=== PATIENT | female | born 1950 | race African-American/Black ===

== ENCOUNTER 2018-04-07 13:30 | Emergency (ER) | payer MEDICARE, OTHER ==
[2018-04-07] MEDS ORDERED: Ketorolac Tromethamine 30 MG/ML VIAL ONE (13:57)
[2018-04-07 14:07] LABS: #Basophils 0.1 thou/uL (0.0-0.2); #Eosinphils 0.1 thou/uL (0.0-0.7); #Lymphocytes 2.2 thou/uL (1.20-3.40); #Monocytes 0.3 thou/uL (0.11-0.59); #Neutrophils 6.2 thou/uL (1.40-6.50); %Basophils 0.9 % (0.0-1.0); %Lymphocytes 24.9 % (21.0-51.0); %Monocytes 3.8 % (0.0-10.0); %Neutrophils 69.4 % (42.0-75.0); Hemoglobin 12.2 g/dL (12.0-16.0); Mean Corpuscular HGB CONC 34.1 g/dL (32.0-36.0); Mean Corpuscular Hemoglobin 30.3 pg (27.0-31.0); Mean Corpuscular Volume 88.8 fL (78.0-98.0); Mean Platelet Volume 8.7 fL (7.4-10.4); Platelet Count 314 thou/uL (130-400); RBC Distribution Width 12.7 % (11.5-14.5); Red Blood Cell (RBC) Count 4.02 mill/uL (4.20-5.40)
[2018-04-07 14:11] LABS: Clarity Clear (Clear); Glucose, Urine (Dipstick) Negative (Negative); Leukocyte Negative (Negative); Nitrite Negative (Negative); Protein, Urine (Dipstick) Trace mg/dL (Neg-Trace); pH, Urine 7.5 (5.0-9.0)
[2018-04-07 14:12] LABS: Bilirubin Negative (Negative); Blood, Urine Negative (Negative); Urobilinogen 0.2 mg/dL (0.2-1.0)
[2018-04-07 14:23] LABS: ALT (SGPT) 13 U/L (8-55); AST (SGOT) 16 U/L (5-34); Albumin 4.6 g/dL (3.4-4.8); Alkaline Phosphatase 56 U/L (40-150); Anion Gap 16 mmol/L (10-20); BUN (Urea Nitrogen) 8 mg/dL (9.8-20.1); Bilirubin, Total 0.5 mg/dL (0.2-1.2); Calc. Creatinine Clearance 0 mL/min (70-130); Calcium 9.7 mg/dL (7.8-10.44); Carbon Dioxide 25 mmol/L (23-31); Chloride 105 mmol/L (98-107); Estimated GFR-MDRD Greater than 90; Globulin 3.3 g/dL (2.4-3.5); Glucose 102 mg/dL (80-115); Lipase 59 U/L (8-78); Potassium 3.7 mmol/L (3.5-5.1); Protein, Total 7.9 g/dL (6.0-8.3); Sodium 142 mmol/L (136-145)
[2018-04-07] MEDS ORDERED: Morphine 4 MG/ML VIAL ONE (15:10)
[2018-04-07] MEDS ORDERED: Ondansetron PF 4 MG/2 ML Vial ONE (15:10)
--- NOTE | 2018-04-07 15:12 | CT ---
CT ABDOMEN AND PELVIS WITHOUT CONTRAST: Date: 04/07/18 COMPARISON: 03/16/15. HISTORY: Sudden onset of left-sided abdominal pain. TECHNIQUE: Multiple contiguous axial images were obtained in a CT of the abdomen and pelvis without contrast. Co jesus reformats were performed. FINDINGS: Numerous calcifications are again seen in the lower pole of the right kidney. The largest of these ca lcifications measure approximately 6.0 mm in size. No calcifications are seen in the left kidney. The re is a stable left extrarenal pelvis. No calcifications seen in either ureter or in the urinary blad kristal. The patient is status post hysterectomy. The liver, gallbladder, adrenal glands, spleen, and pancreas are unremarkable, although evaluation is limited without IV contrast. No free air, free fluid, or stranding changes are seen in the abdomen o r pelvis. The large and small bowel are unremarkable. The appendix is normal. No abdominal or pelvic lymphadeno mario are seen. Degenerative changes are seen in the spine. The visualized inferior thorax and abdominal wall soft ti ssues are unremarkable. IMPRESSION: Nonobstructing right renal calcifications. POS: [facility]
== END 2018-04-07 15:34 | disposition home or self-care (01) ==
LOC: BURERS 13:30
DX: M62.838 Other muscle spasm (principal); E11.9 Type 2 diabetes mellitus without complications; E78.5 Hyperlipidemia, unspecified; I11.0 Hypertensive heart disease with heart failure; I50.9 Heart failure, unspecified; F32.9 Major depressive disorder, single episode, unspecified; E66.9 Obesity, unspecified; Z79.84 Long term (current) use of oral hypoglycemic drugs; Z79.899 Other long term (current) drug therapy
CPT/HCPCS: 74176; 80053; 81003; 83690; 85025; 96374; 96375; J1885; J2270; J2405

== ENCOUNTER 2018-12-17 07:47 | Emergency (ER) | payer MEDICARE, OTHER ==
[2018-12-17 08:15] LABS: Clarity Clear (Clear)
[2018-12-17 08:16] LABS: Bilirubin Negative (Negative); Blood, Urine Trace (Negative); Glucose, Urine (Dipstick) Negative (Negative); Leukocyte Negative (Negative); Nitrite Negative (Negative); Protein, Urine (Dipstick) > or equal to 300 mg/dL (Neg-Trace); RBC/HPF 0-3 HPF (0-3); Urobilinogen 0.2 mg/dL (Less than 2)
[2018-12-17 08:17] LABS: Bacteria/HPF 1+ HPF (None Seen); Squamous Epithelial 0-3 HPF (0-3)
[2018-12-17] MEDS ORDERED: Famotidine In NaCl 20 mg/50 ml Premix Bag ONE (08:29)
[2018-12-17] MEDS ORDERED: Ondansetron PF 4 MG/2 ML Vial ONE (08:29)
[2018-12-17 08:50] LABS: Hemoglobin 11.3 g/dL (12.0-16.0)
[2018-12-17 08:51] LABS: %Eosinophils 1.2 % (0.0-10.0); %Lymphocytes 16.2 % (21.0-51.0); %Monocytes 4.4 % (0.0-10.0); %Neutrophils 77.6 % (42.0-75.0); Manual Diff?? YES; Mean Corpuscular HGB CONC 32.4 g/dL (32.0-36.0); Mean Corpuscular Hemoglobin 30.4 pg (27.0-31.0); Mean Corpuscular Volume 93.9 fL (78.0-98.0); Mean Platelet Volume 8.7 fL (7.4-10.4); Platelet Count 307 thou/uL (130-400); RBC Distribution Width 13.1 % (11.5-14.5)
[2018-12-17 08:52] LABS: #Basophils 0.1 thou/uL (0.0-0.2); #Eosinphils 0.1 thou/uL (0.0-0.7); #Monocytes 0.4 thou/uL (0.11-0.59); %Basophils 0.7 % (0.0-1.0); ALT (SGPT) 14 U/L (8-55); AST (SGOT) 15 U/L (5-34); Albumin 4.2 g/dL (3.4-4.8); Alkaline Phosphatase 54 U/L (40-150); Anion Gap 15 mmol/L (10-20); BUN (Urea Nitrogen) 10 mg/dL (9.8-20.1); Bilirubin, Total 0.3 mg/dL (0.2-1.2); Calc. Creatinine Clearance 0 mL/min (70-130); Calcium 8.9 mg/dL (7.8-10.44); Carbon Dioxide 24 mmol/L (23-31); Chloride 106 mmol/L (98-107); Estimated GFR-MDRD Greater than 90; Globulin 2.6 g/dL (2.4-3.5); Glucose 103 mg/dL (80-115); Lipase 69 U/L (8-78); MDiff Complete? YES; Potassium 3.7 mmol/L (3.5-5.1); Protein, Total 6.8 g/dL (6.0-8.3); Sodium 141 mmol/L (136-145)
[2018-12-17] MEDS ORDERED: cefTRIAXone\\ROCEPHIN 1 GM VIAL ONE (09:00)
[2018-12-17 09:17] LABS: #Lymphocytes 1.5 thou/uL (1.20-3.40)
== END 2018-12-17 09:36 | disposition home or self-care (01) ==
LOC: BURERS 07:47
DX: N39.0 Urinary tract infection, site not specified (principal); R11.2 Nausea with vomiting, unspecified; F32.9 Major depressive disorder, single episode, unspecified; E78.5 Hyperlipidemia, unspecified; I11.0 Hypertensive heart disease with heart failure; I50.9 Heart failure, unspecified; E11.9 Type 2 diabetes mellitus without complications; E66.9 Obesity, unspecified; Z79.899 Other long term (current) drug therapy; Z79.84 Long term (current) use of oral hypoglycemic drugs
CPT/HCPCS: 36415; 80053; 81003; 81015; 83690; 84484; 85025; 93005; 96365; 96368; 96375; J0696; J2405

== ENCOUNTER 2019-01-08 09:56 | Emergency (ER) | payer MEDICARE, OTHER ==
--- NOTE | 2019-01-08 15:34 | RAD ---
RIGHT KNEE FOUR VIEWS: 01/08/2019 HISTORY: FINDINGS: No fracture is seen. There is slight medial joint space narrowing and a small joint effusion. Some calcification of the lateral meniscus was noted. This can be due to degenerative change, such as ost eoarthritis, prior trauma, or crystal arthropathies, such as CPPD. IMPRESSION: Mild degenerative change. POS: [facility]
== END 2019-01-08 10:50 | disposition home or self-care (01) ==
LOC: BURERS 09:56
DX: M25.561 Pain in right knee (principal); I11.0 Hypertensive heart disease with heart failure; I50.9 Heart failure, unspecified; E11.9 Type 2 diabetes mellitus without complications; E78.5 Hyperlipidemia, unspecified; Z79.899 Other long term (current) drug therapy; Z79.84 Long term (current) use of oral hypoglycemic drugs

== ENCOUNTER 2019-03-23 17:38 | Emergency (ER) | payer MEDICARE, OTHER ==
[2019-03-23] MEDS ORDERED: traMADol HCl 50 MG TAB ONE (18:03)
[2019-03-23 18:11] LABS: Bilirubin Negative (Negative); Blood, Urine Negative (Negative); Clarity Clear (Clear); Glucose, Urine (Dipstick) Negative (Negative); Leukocyte Trace (Negative); Nitrite Negative (Negative); Protein, Urine (Dipstick) Trace mg/dL (Neg-Trace)
[2019-03-23 18:13] LABS: Bacteria/HPF 2+ HPF (None Seen); RBC/HPF 0-3 HPF (0-3); Squamous Epithelial 0-3 HPF (0-3); WBC/HPF 0-3 HPF (0-3)
[2019-03-23] MEDS ORDERED: Sulfameth/Trimethoprim DS 800-160mg TAB ONE (18:31)
[2019-03-23] MEDS ORDERED: Phenazopyridine HCl 97.5 MG TABLET ONE (18:31)
== END 2019-03-23 18:33 | disposition home or self-care (01) ==
LOC: BURERS 17:38
DX: N39.0 Urinary tract infection, site not specified (principal); E11.9 Type 2 diabetes mellitus without complications; E78.5 Hyperlipidemia, unspecified; I11.0 Hypertensive heart disease with heart failure; I50.9 Heart failure, unspecified; E78.00 Pure hypercholesterolemia, unspecified; Z79.899 Other long term (current) drug therapy; Z79.84 Long term (current) use of oral hypoglycemic drugs
CPT/HCPCS: 81003; 81015; 87086; 99283

== ENCOUNTER 2019-03-27 10:37 | Emergency (ER) | payer MEDICARE, OTHER ==
[2019-03-27] MEDS ORDERED: Famotidine In NaCl 20 mg/50 ml Premix Bag ONE (11:08)
[2019-03-27] MEDS ORDERED: Ondansetron PF 4 MG/2 ML Vial ONE ×2 (11:08→12:01)
[2019-03-27 11:29] LABS: #Basophils 0.1 thou/uL (0.0-0.2); #Eosinphils 0.1 thou/uL (0.0-0.7); #Lymphocytes 1.8 thou/uL (1.20-3.40); #Monocytes 0.4 thou/uL (0.11-0.59); #Neutrophils 4.2 thou/uL (1.40-6.50); %Basophils 1.2 % (0.0-1.0); %Eosinophils 1.6 % (0.0-10.0); %Lymphocytes 27.1 % (21.0-51.0); %Monocytes 6.3 % (0.0-10.0); %Neutrophils 63.8 % (42.0-75.0); Hemoglobin 12.3 g/dL (12.0-16.0); Mean Corpuscular HGB CONC 31.3 g/dL (32.0-36.0); Mean Corpuscular Hemoglobin 29.5 pg (27.0-31.0); Mean Corpuscular Volume 94.3 fL (78.0-98.0); Mean Platelet Volume 7.6 fL (7.4-10.4); Platelet Count 300 thou/uL (130-400); RBC Distribution Width 12.9 % (11.5-14.5); Red Blood Cell (RBC) Count 4.17 mill/uL (4.20-5.40); White Blood Cell (WBC) Count 6.7 thou/uL (4.8-10.8)
[2019-03-27 11:44] LABS: ALT (SGPT) 53 U/L (8-55); AST (SGOT) 23 U/L (5-34); Albumin 4.4 g/dL (3.4-4.8); Alkaline Phosphatase 78 U/L (40-110); Anion Gap 18 mmol/L (10-20); BUN (Urea Nitrogen) 17 mg/dL (9.8-20.1); Bilirubin, Total 0.3 mg/dL (0.2-1.2); Calc. Creatinine Clearance 0 mL/min (70-130); Calcium 9.7 mg/dL (7.8-10.44); Carbon Dioxide 22 mmol/L (23-31); Chloride 102 mmol/L (98-107); Estimated GFR-MDRD 52; Globulin 3.1 g/dL (2.4-3.5); Glucose 95 mg/dL (80-115); Lipase 73 U/L (8-78); Potassium 4.9 mmol/L (3.5-5.1); Protein, Total 7.5 g/dL (6.0-8.3); Sodium 137 mmol/L (136-145)
[2019-03-27] MEDS ORDERED: Glycopyrrolate 0.4 MG/ 2 ML VIAL ONE (12:15)
[2019-03-27 12:55] LABS: Bilirubin Negative (Negative); Blood, Urine Negative (Negative); Clarity Clear (Clear); Glucose, Urine (Dipstick) Negative (Negative); Leukocyte Negative (Negative); Nitrite Negative (Negative); Protein, Urine (Dipstick) Negative (Neg-Trace); Urobilinogen 0.2 mg/dL (Less than 2)
--- NOTE | 2019-03-27 13:20 | RAD ---
PORTABLE CHEST: DATE: 03/27/2019. FINDINGS: An AP portable film at 1055 is compared with a 03/16/2015 study. The heart is normal in size and the lungs are clear. There are no congestive changes, pleural effusi ons, or other acute findings. The mediastinum appears normal. The bony structures were unremarkable . IMPRESSION: No acute thoracic findings. POS: HOME
== END 2019-03-27 13:14 | disposition home or self-care (01) ==
LOC: BURERS 10:37
DX: R11.2 Nausea with vomiting, unspecified (principal); R10.13 Epigastric pain; I11.0 Hypertensive heart disease with heart failure; I50.9 Heart failure, unspecified; E78.00 Pure hypercholesterolemia, unspecified; E78.5 Hyperlipidemia, unspecified; E11.9 Type 2 diabetes mellitus without complications; Z79.84 Long term (current) use of oral hypoglycemic drugs; Z79.899 Other long term (current) drug therapy
CPT/HCPCS: 71045; 80053; 81003; 83690; 84484; 85025; 93005; 94760; 96361; 96365; 96375; 96376; J2405

== ENCOUNTER 2019-03-29 09:51 | Outpatient (CLI) | payer MEDICARE, OTHER ==
--- NOTE | 2019-03-30 07:57 | ULT ---
ABDOMINAL ULTRASOUND: 03/29/19 Ultrasonography of the abdomen was performed. The patient presents with right upper quadrant pain and nausea. The liver was 16 cm in length which is upper normal but no internal lesions were seen. There are no dilated ducts. The gallbladder contains no signs of stones or wall thickening. The common bile duct i s borderline in caliber at 6 mm. The inferior vena cava and aorta were unremarkable. The pancreas was partially obscured by gas, but the visible areas appeared normal. The spleen was normal in size, and may have calcified granulomas in it. The right kidney is 12 cm long and the left is 12.7 cm long. Some small stones are seen in each kidne y, not a new finding, but present on prior scans. She has an extrarenal pelvis associated with the le ft kidney. IMPRESSION: Tiny nonobstructing renal calculi bilaterally. No evidence of acute abdominal change. POS: HOME
== END 2019-03-29 09:52 | disposition home or self-care (01) ==
LOC: BURULT 09:51
PROVIDERS: ATTEND Family Medicine
DX: K80.00 Calculus of gallbladder with acute cholecystitis without obstruction (principal); R10.11 Right upper quadrant pain; N20.0 Calculus of kidney
CPT/HCPCS: 76705

== ENCOUNTER 2019-05-04 12:03 | Emergency (ER) | payer MEDICARE, OTHER ==
[2019-05-04] MEDS ORDERED: Morphine 4 MG/ML VIAL ONE (12:35)
[2019-05-04 12:39] LABS: #Eosinphils 0.1 thou/uL (0.0-0.7); #Lymphocytes 1.7 thou/uL (1.20-3.40); #Monocytes 0.3 thou/uL (0.11-0.59); #Neutrophils 7.8 thou/uL (1.40-6.50); %Basophils 0.4 % (0.0-1.0); %Lymphocytes 16.7 % (21.0-51.0); %Monocytes 3.3 % (0.0-10.0); %Neutrophils 78.6 % (42.0-75.0); Hemoglobin 11.3 g/dL (12.0-16.0); Mean Corpuscular HGB CONC 32.4 g/dL (32.0-36.0); Mean Corpuscular Hemoglobin 30.3 pg (27.0-31.0); Mean Corpuscular Volume 93.3 fL (78.0-98.0); Platelet Count 283 thou/uL (130-400); RBC Distribution Width 13.1 % (11.5-14.5); Red Blood Cell (RBC) Count 3.74 mill/uL (4.20-5.40); White Blood Cell (WBC) Count 9.9 thou/uL (4.8-10.8)
[2019-05-04 12:52] LABS: Bilirubin Negative (Negative); Blood, Urine Large (Negative); Clarity Cloudy (Clear); Glucose, Urine (Dipstick) Negative (Negative); Leukocyte Negative (Negative); Nitrite Negative (Negative); Protein, Urine (Dipstick) > or equal to 300 mg/dL (Neg-Trace); Urobilinogen 0.2 mg/dL (Less than 2)
[2019-05-04 12:57] LABS: Bacteria/HPF Rare-Few HPF (None Seen); RBC/HPF Greater than 50 HPF (0-3); Squamous Epithelial 0-3 HPF (0-3); WBC/HPF 0-3 HPF (0-3)
[2019-05-04 12:58] LABS: ALT (SGPT) 11 U/L (8-55); AST (SGOT) 20 U/L (5-34); Albumin 4.6 g/dL (3.4-4.8); Alkaline Phosphatase 56 U/L (40-110); Anion Gap 19 mmol/L (10-20); BUN (Urea Nitrogen) 11 mg/dL (9.8-20.1); Bilirubin, Total 0.3 mg/dL (0.2-1.2); Calc. Creatinine Clearance 0 mL/min (70-130); Calcium 9.5 mg/dL (7.8-10.44); Carbon Dioxide 23 mmol/L (23-31); Chloride 104 mmol/L (98-107); Estimated GFR-MDRD 70; Globulin 3.2 g/dL (2.4-3.5); Glucose 112 mg/dL (80-115); Lipase 59 U/L (8-78); Protein, Total 7.8 g/dL (6.0-8.3); Sodium 142 mmol/L (136-145)
--- NOTE | 2019-05-04 13:31 | CT ---
CT abdomen and pelvis noncontrast HISTORY: Right flank pain. COMPARISON: 04/07/2018. FINDINGS: There is moderate distention of the right ureter to the level of the 0.7 cm calculus within the proximal ureter. Mid ureter remains distended to the level of 4 adjacent rounded calcifications that are vertically stacked at the mid ureter. Each is approximately 0.4 cm diameter. Total length of the cluster of calcifications is 1.6 cm. The right ureter beyond this point is decompressed. Urinary bladder is incompletely distended. At the inferior pole of the right kidney, th ere is a cluster of calcifications within the calyces. At least 7 calcifications, measuring up to 0.7 cm greatest diameter. Left renal collecting system and ureter are decompressed without stone apparent. Lack of contrast limits evaluation for other abnormalities. Postoperative changes of anterior abdomin al wall. Phleboliths within the pelvis. Posterior disc protrusion at the L4-5 level. Additional degenerative changes throughout the lumbar spine. IMPRESSION: Partial obstruction at multiple right ureteral calculi, as detailed above. Additional num erous nonobstructing right renal calculi. Posterior disc protrusion of the lumbar spine at the L4-5 level.
[2019-05-04] MEDS ORDERED: Ketorolac Tromethamine 30 MG/ML VIAL ONE (13:54)
[2019-05-04] MEDS ORDERED: Ondansetron PF 4 MG/2 ML Vial ONE (14:01)
== END 2019-05-04 14:20 | disposition home or self-care (01) ==
LOC: BURERS 12:03
DX: N13.2 Hydronephrosis with renal and ureteral calculous obstruction (principal); I10 Essential (primary) hypertension; E11.9 Type 2 diabetes mellitus without complications; I11.0 Hypertensive heart disease with heart failure; I50.9 Heart failure, unspecified; E78.00 Pure hypercholesterolemia, unspecified; Z79.899 Other long term (current) drug therapy; Z79.84 Long term (current) use of oral hypoglycemic drugs
CPT/HCPCS: 36415; 74176; 80053; 81003; 81015; 83690; 84484; 85025; 93005; 96374; 96375; J1885; J2270; J2405

== ENCOUNTER 2019-08-09 08:58 | Outpatient (CLI) | payer MEDICARE, OTHER ==
--- NOTE | 2019-08-10 07:36 | ULT ---
BILATERAL RENAL ULTRASOUND: 08/09/19 Ultrasonography of the kidneys was performed. The right kidney measures 13.5 x 5.5 x 5.0 cm. Several nonobstructing renal calculi are seen within i t. There is no sign of obstruction. There may be a small amount of fluid immediately outside of the l ower pole of the right kidney, significance unknown. The left kidney measures 13.4 x 5.3 x 5.2 cm. No hydronephrosis was seen in it. No renal calcificatio ns were appreciated. There appears to be a 4.9 cm peripelvic cyst present in association with this ki dney. If any calcifications are present on this side, they are rather tiny compared to the right side . The urinary bladder did not have much urine in it to begin with but voided completely. No internal de fects were seen. IMPRESSION: 1. Renal calculi, particularly in the right kidney with no sign of obstruction. There might be o ne or two calculi in the left kidney but this is less certain. 2. A 4.9 cm parapelvic cyst, left kidney. POS: HOME
== END 2019-08-09 08:59 | disposition home or self-care (01) ==
LOC: BURULT 08:58
PROVIDERS: ATTEND Urology
DX: N20.0 Calculus of kidney (principal); N28.1 Cyst of kidney, acquired
CPT/HCPCS: 76770

== ENCOUNTER 2019-08-22 17:35 | Emergency (ER) | payer MEDICARE, OTHER ==
[~2019-08-22 17:35] MED LIST: Iopamidol 370 76% 100 ML VIAL ONE
[2019-08-22 17:59] LABS: #Basophils 0.1 thou/uL (0.0-0.2); #Eosinphils 0.1 thou/uL (0.0-0.7); #Lymphocytes 2.3 thou/uL (1.20-3.40); #Monocytes 0.5 thou/uL (0.11-0.59); %Basophils 0.7 % (0.0-1.0); %Lymphocytes 23.4 % (21.0-51.0); %Monocytes 5.3 % (0.0-10.0); %Neutrophils 69.7 % (42.0-75.0); Hemoglobin 11.8 g/dL (12.0-16.0); Mean Corpuscular Hemoglobin 30.2 pg (27.0-31.0); Mean Corpuscular Volume 94.3 fL (78.0-98.0); Mean Platelet Volume 8.3 fL (7.4-10.4); Platelet Count 316 thou/uL (130-400)
--- NOTE | 2019-08-22 18:10 | RAD ---
Portable chest: HISTORY: Chest pain COMPARISON: none FINDINGS: Lung caldwell are clear. Heart and mediastinum appear unremarkable. Vascularity is normal. Visualized osseous structures unremarkable. IMPRESSION: No acute finding
[2019-08-22 18:16] LABS: Albumin 4.5 g/dL (3.4-4.8); Alkaline Phosphatase 73 U/L (40-110); Anion Gap 16 mmol/L (10-20); BUN (Urea Nitrogen) 12 mg/dL (9.8-20.1); Bilirubin, Total 0.5 mg/dL (0.2-1.2); Calc. Creatinine Clearance 0 mL/min (70-130); Calcium 9.3 mg/dL (7.8-10.44); Carbon Dioxide 25 mmol/L (23-31); Chloride 104 mmol/L (98-107); Estimated GFR-MDRD 88; Glucose 99 mg/dL (80-115); Potassium 3.8 mmol/L (3.5-5.1); Protein, Total 7.5 g/dL (6.0-8.3); Sodium 141 mmol/L (136-145)
[2019-08-22 18:17] LABS: ALT (SGPT) 14 U/L (8-55); AST (SGOT) 15 U/L (5-34); CK (CPK) 102 U/L (29-168)
[2019-08-22 18:44] LABS: Bilirubin Negative (Negative); Blood, Urine Negative (Negative); Clarity Clear (Clear); Glucose, Urine (Dipstick) Negative (Negative); Leukocyte Moderate (Negative); Nitrite Negative (Negative); Protein, Urine (Dipstick) Negative (Neg-Trace); Urobilinogen 0.2 mg/dL (Less than 2)
[2019-08-22 18:53] LABS: Bacteria/HPF Rare-Few HPF (None Seen); RBC/HPF 0-3 HPF (0-3); Squamous Epithelial 0-3 HPF (0-3); WBC/HPF 0-3 HPF (0-3)
[2019-08-22] MEDS ORDERED: Aspirin Chewable 81 MG TAB ONE (19:10)
--- NOTE | 2019-08-22 20:01 | CT ---
CTA CHEST WITH CONTRAST: Technique: Axial tomograms were obtained with multiplanar reconstruction and 3D post processing follo wing angio protocol. Indications: Chest pain. Elevated D-dimer, shortness of breath. FINDINGS: Pulmonary arteries show adequate opacification. No evidence of pulmonary embolus identified. Thoracic aorta is unremarkable. No dissection. Lung caldwell are clear. No evidence of infiltrate or effusion. Borderline cardiomegaly and mild vascular engorgement. No evidence of adenopathy. Images through the upper abdomen show nonspecific adrenal hyperplasia. No other significant abdominal findings. IMPRESSION: 1. No evidence of pulmonary embolus. 2. No acute lung process. POS: [facility]
== END 2019-08-22 21:18 | disposition short-term general hospital (02) ==
LOC: BURERS 17:35
DX: R07.9 Chest pain, unspecified (principal); K02.9 Dental caries, unspecified; E11.9 Type 2 diabetes mellitus without complications; E78.5 Hyperlipidemia, unspecified; I11.0 Hypertensive heart disease with heart failure; I50.9 Heart failure, unspecified; E78.00 Pure hypercholesterolemia, unspecified; Z79.84 Long term (current) use of oral hypoglycemic drugs; Z79.899 Other long term (current) drug therapy
CPT/HCPCS: 71045; 71275; 80053; 81003; 81015; 82550; 83880; 84484; 85025; 85379; 93005; 94760; Q9967